=== PATIENT | female | born 1940 | race Caucasian/White ===

== ENCOUNTER 2019-10-02 08:01 | Inpatient (IN) ==
[2019-10-02] MEDS ORDERED: Aspirin 81 MG TAB.CHEW PO ONE (08:07)
[2019-10-02] MEDS ORDERED: Nitroglycerin 0.4 MG TAB.SUBL SL PRN (08:07)
[2019-10-02 08:27] LABS: Basophils % 0.3 %; Eosinophils % 0.1 %; Hemoglobin 13.5 g/dL (11.5-15.4); Immature Granulocytes % 0.3 % (0-4); Lymphocytes # 0.8 K/mcL (0.6-4.6); Lymphocytes % 8.3 %; Mean Corpuscular HGB Conc 33.8 g/dL (31.6-35.5); Mean Corpuscular Volume 97.8 fL (83.0-100.0); Mean Platelet Volume 9.2 fL (9.4-12.4); Monocytes # 0.5 K/mcL (0.0-1.3); Monocytes % 5.7 %; Neutrophils # 7.8 K/mcL (1.6-8.9); Platelet Count 143 K/mcL (140-400); Red Blood Count 4.09 M/mcL (3.82-4.97); Red Cell Distribution Width 12.1 % (11.5-14.5); Segmented Neutrophils % 85.3 %; White Blood Count 9.1 K/mcL (4.3-11.1)
[2019-10-02 08:35] LABS: INR 1.8
[2019-10-02 08:38] LABS: Activated Partial Thrombo Time 39.6 Seconds (26.0-36.0)
[2019-10-02] MEDS ORDERED: Furosemide 40 MG/4 ML VIAL IVP ONE (08:43)
[2019-10-02 09:01] LABS: BUN/Creatinine Ratio 14 (6-26); Blood Urea Nitrogen 12 mg/dL (8-23); Calcium 9.9 mg/dL (8.6-10.3); Carbon Dioxide 29 mEq/L (23-29); Chloride 93 mEq/L (98-107); Glucose 118 mg/dL (70-105); Osmolality,Calculated 269 (280-300); Sodium 129 mEq/L (136-145); Troponin I 0.04 ng/mL (< 0.04); eGFR For African Americans > 60 (> 60); eGFR For Non-African Americans > 60 (> 60)
[2019-10-02] MEDS ORDERED: MOM Conc 10 ML UD.LIQ PO PRN (10:06)
[2019-10-02] MEDS ORDERED: Ondansetron 4 MG/2 ML VIAL IVP PRN (10:06)
[2019-10-02] MEDS: Furosemide 20 MG/2 ML VIAL IVP SCH (16:14)
[2019-10-02] MEDS: Apixaban 5 MG TABLET PO SCH (20:44)
[2019-10-03 06:33] LABS: Hematocrit 37.3 % (35.3-44.9); Hemoglobin 12.3 g/dL (11.5-15.4); Mean Corpuscular Hemoglobin 32.4 pg (28.0-33.3); Mean Corpuscular Volume 98.2 fL (83.0-100.0); Mean Platelet Volume 9.5 fL (9.4-12.4); Platelet Count 122 K/mcL (140-400); Red Cell Distribution Width 12.2 % (11.5-14.5); White Blood Count 7.8 K/mcL (4.3-11.1)
[2019-10-03 06:52] LABS: BUN/Creatinine Ratio 13 (6-26); Blood Urea Nitrogen 11 mg/dL (8-23); Calcium 9.2 mg/dL (8.6-10.3); Carbon Dioxide 32 mEq/L (23-29); Chloride 90 mEq/L (98-107); Glucose 85 mg/dL (70-105); Osmolality,Calculated 267 (280-300); Potassium 3.5 mEq/L (3.5-5.1); Sodium 129 mEq/L (136-145); eGFR For African Americans > 60 (> 60); eGFR For Non-African Americans > 60 (> 60)
[2019-10-03] MEDS: Furosemide 20 MG/2 ML VIAL IVP SCH ×2 (08:25→17:03)
[2019-10-03] MEDS: Apixaban 5 MG TABLET PO SCH ×2 (08:25→20:18)
[2019-10-03] MEDS ORDERED: Apixaban 5 MG TABLET PO SCH (09:00)
[2019-10-03] MEDS: Metoprolol XL (24 HR) Succ 25 MG TAB.ER.24H PO SCH (10:55)
[2019-10-04 06:21] LABS: Hematocrit 37.6 % (35.3-44.9); Hemoglobin 12.2 g/dL (11.5-15.4); Mean Corpuscular HGB Conc 32.4 g/dL (31.6-35.5); Mean Corpuscular Hemoglobin 32.2 pg (28.0-33.3); Mean Corpuscular Volume 99.2 fL (83.0-100.0); Mean Platelet Volume 9.7 fL (9.4-12.4); Platelet Count 124 K/mcL (140-400); Red Blood Count 3.79 M/mcL (3.82-4.97); Red Cell Distribution Width 12.2 % (11.5-14.5); White Blood Count 6.3 K/mcL (4.3-11.1)
[2019-10-04 07:57] LABS: BUN/Creatinine Ratio 12 (6-26); Blood Urea Nitrogen 12 mg/dL (8-23); Calcium 8.9 mg/dL (8.6-10.3); Carbon Dioxide 33 mEq/L (23-29); Chloride 88 mEq/L (98-107); Glucose 90 mg/dL (70-105); Osmolality,Calculated 271 (280-300); Potassium 3.1 mEq/L (3.5-5.1); Sodium 131 mEq/L (136-145); eGFR For African Americans > 60 (> 60); eGFR For Non-African Americans 53 (> 60)
[2019-10-04] MEDS: Metoprolol XL (24 HR) Succ 25 MG TAB.ER.24H PO SCH (09:11)
[2019-10-04] MEDS: Apixaban 5 MG TABLET PO SCH (09:12)
[2019-10-04] MEDS: Furosemide 20 MG/2 ML VIAL IVP SCH (09:13)
[2019-10-04 10:29] VITALS: BP 185/70
[2019-10-04] MEDS ORDERED: FLU Vac QV 19-20 (6Month+)/PF 0.5 ML SYRINGE IM ONE (12:09)
== END 2019-10-04 13:21 | disposition home or self-care (01) | DRG 189 ==
LOC: EMEROOPIK 08:01 → INPPIK 08:01
PROVIDERS: ADMIT Family Medicine; ATTEND Family Medicine